=== PATIENT | female | born 1995 | race African-American/Black ===

== ENCOUNTER 2019-03-28 15:20 | Emergency (ER) | payer OTHER ==
[~2019-03-28] VITALS: Ht 162.6 cm; Wt 68.0 kg
[2019-03-28 17:34] LABS: URINE BLOOD NEGATIVE (Negative); URINE CLARITY SL CLOUDY; URINE COLOR YELLOW; URINE GLUCOSE-RANDOM* NEGATIVE (Negative); URINE KETONES 2+ (Negative); URINE LEUKOCYTES NEGATIVE (Negative); URINE NITRITE NEGATIVE (Negative); URINE PROTEIN (DIPSTICK) 1+ (Negative); URINE SPECIFIC GRAVITY >= 1.030 (1.005-1.035)
[2019-03-28 17:36] LABS: ICTOTEST (BILI CONFIRMATORY) Negative (Negative); URINE BILIRUBIN NEGATIVE (Negative)
[2019-03-28 17:40] LABS: SQUAMOUS >10 Many /LPF (0-3)
[2019-03-28 17:41] LABS: AMORPHOUS URATES Moderate /LPF (None Seen); CASTS None Seen /LPF (None Seen); URINE RBC 0-2 Rare /HPF (0-2)
[2019-03-28 17:42] LABS: BACTERIA None Seen /HPF (None Seen); URINE WBC 0-5 Rare /HPF (0-5)
[2019-03-28 17:50] LABS: AMP/METHAMP Negative (Negative); BARBITURATES Negative (Negative); BENZODIAZEPINES Negative (Negative); COCAINE Negative (Negative); METHADONE Negative (Negative); OPIATES Negative (Negative); PCP Negative (Negative)
[2019-03-28 17:54] LABS: ABSOLUTE NEUTROPHILS 2.4 thou/uL (1.4-8.2); BASOPHILS 0.8 % (0.0-2.0); EOSINOPHILS 1.8 % (0.0-3.0); HEMATOCRIT 39.5 % (37.0-47.0); HEMOGLOBIN 13.3 gm/dL (12.0-15.0); MCH 26.8 pg (26.0-34.0); MCHC 33.6 g/dL (28.0-37.0); MCV 79.8 fL (80.0-100.0); MONOCYTES 11.4 % (1.0-8.0); PLATELET COUNT 297 thou/uL (150-400); RBC 4.96 mil/uL (4.20-5.00); RDW 14.6 % (10.5-14.5); WBC 4.3 thou/uL (4.0-11.0)
[2019-03-28 18:02] LABS: CALCIUM 9.4 mg/dL (8.5-10.1); CREATININE 0.7 mg/dL (0.6-1.0); POTASSIUM 3.4 mmol/L (3.5-5.1)
[2019-03-28 18:10] LABS: ALBUMIN 3.8 g/dL (3.4-5.0); TOTAL PROTEIN 8.3 g/dL (6.4-8.2)
[2019-03-28] MEDS ORDERED: VITAFOL-OB+DHA1 EACH PO (19:34)
[2019-03-28 20:33] VITALS: BP 120/69
--- NOTE | 2019-03-29 08:14 | EKG ---
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
== END 2019-03-28 20:33 | disposition home or self-care (01) ==
LOC: ER 15:20
PROVIDERS: Physician Assistant
DX: O23.591 Infection of other part of genital tract in pregnancy, first trimester (principal); O99.281 Endocrine, nutritional and metabolic diseases complicating pregnancy, first trimester; O26.891 Other specified pregnancy related conditions, first trimester; R42 Dizziness and giddiness; Z3A.01 Less than 8 weeks gestation of pregnancy; Z88.6 Allergy status to analgesic agent

== ENCOUNTER 2020-07-08 18:35 | Emergency (ER) | payer OTHER ==
[~2020-07-08] VITALS: Ht 162.6 cm; Wt 77.1 kg
[~2020-07-08 18:35] MED LIST: VITAFOL-OB+DHA1 EACH PO
[2020-07-08 18:42] VITALS: BP 132/90
== END 2020-07-08 21:19 | disposition home or self-care (01) ==
LOC: ER 18:35
DX: M79.645 Pain in left finger(s) (principal); Z79.899 Other long term (current) drug therapy; Z88.8 Allergy status to other drugs, medicaments and biological substances